=== PATIENT | female | born 1985 | race Two or more races ===

== ENCOUNTER 2017-07-13 11:47 | Emergency (ER) | payer OTHER ==
[2017-07-13 12:05] VITALS: BP 113/86; PULSE 78; TEMP 98.4; BMI 32.9
[2017-07-13] MEDS ORDERED: SODIUM CHLORIDE 1,000 ML IV ONE (12:32)
--- NOTE | 2017-07-13 12:43 | PDOC ---
History of Present Illness - General History Source: Patient Exam Limitations: No Limitations - History of Present Illness Initial Comments: 07/13/17 13:02 The patient is a 32 year old, A0 female with a significant PMH of left ovarian cyst removal and right ovarian cyst who presents to the emergency department with vaginal bleeding with associated suprapubic discomfort and lightheadedness approximately 1 hour ago. The patient describes the vaginal bleeding as "clots and gushing flow" about 1 hour ago but states the vaginal bleeding has slowed down since. The patient states she had a HCG recently which showed she was six months . The patient describes the suprapubic discomfort as cramping and states it is a /10. The patient states she had a vaginal delivery three months ago and her last menstrual period was on . The patient has not taking any medications for the pain at home and refuse to take pain meds at the ER. The patient denies chest pain, shortness of breath, headache and dizziness. Denies fever, chills, nausea, vomit, diarrhea and constipation. Denies dysuria, frequency, and urgency. Allergies: NKA Past surgical history: Left ovarian cyst removal. Social history: No reported alcohol, drug, or cigarette use. 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 <Amrita Starks - Last Filed: 07/13/17 13:03> <Sukumar Rowland - Last Filed: 07/13/17 15:08> - General Chief Complaint: Vaginal Bleeding Stated Complaint: VAGINAL BLEEDING (6 WKS ) Time Seen by Provider: 07/13/17 12:31 Past History <Amrita Starks - Last Filed: 07/13/17 13:03> - Past Medical History COPD: No - Reproductive History Is Patient Now?: Yes - Suicide/Smoking/Psychosocial Hx Smoking History: Never smoked Have you smoked in the past 12 months: No Information on smoking cessation initiated: No Hx Alcohol Use: No Drug/Substance Use Hx: No Substance Use Type: None <Sukumar Rowland - Last Filed: 07/13/17 15:08> - Past Medical History Allergies/Adverse Reactions: Allergies Allergy/AdvReac Type Severity Reaction Status Date / Time No Known Allergies Allergy Verified 01/17/16 11:46 Home Medications: Ambulatory Orders NK [No Known Home Medication] 01/17/16 Review of Systems - Review of Systems Constitutional: No: Chills, Fever Respiratory: No: Cough, Shortness of Breath Cardiac (ROS): No: Chest Pain ABD/GI: No: Diarrhea, Vomiting : Yes: See HPI All Other Systems: Reviewed and Negative <Sukumar Rowland - Last Filed: 07/13/17 15:08> *Physical Exam - Vital Signs Last Vital Signs Temp Pulse Resp BP Pulse Ox 98.4 F 78 18 113/86 100 07/13/17 12:02 07/13/17 12:02 07/13/17 12:02 07/13/17 12:02 07/13/17 12:02 - Physical Exam Comments: 07/13/17 13:01 GENERAL: The patient is awake, alert, and fully oriented, in no acute distress. HEAD: Normal with no signs of trauma. EYES: Pupils equal, round and reactive to light, extraocular movements intact, sclera anicteric, conjunctiva clear with no pallor. ENT: Ears normal, nares patent, oropharynx clear without exudates. Moist mucous membranes. NECK: Normal range of motion, supple without lymphadenopathy, JVD, or masses. LUNGS: Breath sounds equal, clear to auscultation bilaterally. No wheeze/ crackles. HEART: Regular rate and rhythm, normal S1 and S2 without murmur or rub. ABDOMEN: (+) Suprapubic discomfort. Soft/nontender/nondistended. BS wnl. No guarding or rebound. No palpable masses. No hepatosplenomegaly. EXTREMITIES: Normal range of motion, no edema. No clubbing or cyanosis. No cords, erythema, or tenderness. NEUROLOGICAL: Cranial nerves II through XII grossly intact. Normal speech, normal gait. PSYCH: Normal mood, normal affect. SKIN: Warm, Dry, normal turgor, no rashes or lesions noted. <Amrita Starks - Last Filed: 07/13/17 13:03> - Vital Signs Last Vital Signs Temp Pulse Resp BP Pulse Ox 98.4 F 78 18 113/86 100 07/13/17 12:02 07/13/17 12:02 07/13/17 12:02 07/13/17 12:02 07/13/17 12:02 <Sukumar Rowland - Last Filed: 07/13/17 15:08> ED Treatment Course - LABORATORY CBC & Chemistry Diagram: 07/13/17 12:40 - RADIOLOGY Radiology Studies Ordered: Category Date Time Status TRANSVAGINAL US PREG [US] Stat Ultrasound 07/13/17 12:32 Ordered <Sukumar Rowland - Last Filed: 07/13/17 15:08> Medical Decision Making - Medical Decision Making 07/13/17 13:28 A portion of this note was documented by scribe services under my direction. I have reviewed the details of the note, within reason, and agree with the documentation with the following case summary and management plan written by me. Healthy 32-year-old female LMP about 6 weeks status post uncomplicated about 3 months ago, self diagnosed about 2 weeks ago upon missing her menses presents now with vaginal bleeding with clots over the last hour with pelvic cramping. Slight lightheadedness but no loss of consciousness, no fevers or chills. Vital signs normal. Slight suprapubic discomfort to palpation without guarding or rebound 32-year-old female with vaginal bleeding in the setting of early , rule out ectopic, rule out miscarriage. Transvaginal ultrasound, hCG, type and screen IV fluids, reassess 07/13/17 15:04 RH+, HCG at expected levels, US with single live IUP and normal heartbeat. normal os per discussion with rads. Bleeding has significantly decreased/improved. Agrees with d/c plan at this time, prompt f/u with her OB, understands return criteria. <Sukumar Rowland - Last Filed: 07/13/17 15:08> *DC/Admit/Observation/Transfer - Attestations Scribe Attestion: 07/13/17 13:01 Documentation prepared by Amrita Starks, acting as medical science liaison for Sukumar Rowland MD. <Amrita Starks - Last Filed: 07/13/17 13:03> <Sukumar Rowland - Last Filed: 07/13/17 15:08> Diagnosis at time of Disposition: Vaginal bleeding affecting early - Discharge Dispostion Disposition: HOME Condition at time of disposition: Improved - Referrals Referrals: Arturo Pike MD, MD [Primary Care Provider] - - Patient Instructions Printed Discharge Instructions: DI for Threatened Additional Instructions: Activity as tolerated. Stay hydrated. Tylenol 1000 mg every 8 hours as needed for pain. Blood tests and an ultrasound showed a normal in the uterus. While the bleeding is concerning, the workup is reassuring. Monitor the amount of bleeding/cramps and follow up closely with your IT SENIOR ANALYST. Continue any medications as previously prescribed by your physician. You should follow up with your IT SENIOR ANALYST as soon as possible regarding today's emergency department visit. Return to the emergency department for any new or concerning symptoms, particularly worsening bleeding or passage of large clots/tissue, severe pelvic cramping, fevers or chills.
[2017-07-13 13:10] LABS: BASO % 0.6 % (0-2.0); EOS % 0.9 % (0-4.5); HEMATOCRIT 39.3 % (32.4-45.2); HEMOGLOBIN 12.6 GM/dL (10.7-15.3); LYMPH % 27.8 % (8-40); MCH 28.4 pg (25.7-33.7); MCHC 32.2 g/dl (32.0-36.0); MEAN CELL VOLUME 88.2 fl (80-96); MEAN PLT VOLUME 8.2 fl (7.5-11.1); MONO % 8.2 % (3.8-10.2); NEUT % 62.5 % (42.8-82.8); PLATELET COUNT 361 K/MM3 (134-434); RBC 4.45 M/mm3 (3.60-5.2); RDW 13.2 % (11.6-15.6); WHITE BLOOD COUNT 5.4 K/mm3 (4.0-10.0)
[2017-07-13 13:13] LABS: URINE APPEARANCE SLCLOUDY; URINE BILIRUBIN NEGATIVE (NEGATIVE); URINE BLOOD 3+ (NEGATIVE); URINE COLOR YELLOW; URINE GLUCOSE (UA) NEGATIVE (NEGATIVE); URINE KETONE NEGATIVE (NEGATIVE); URINE LEUK ESTERASE NEGATIVE (NEGATIVE); URINE NITRITE NEGATIVE (NEGATIVE); URINE UROBILINOGEN NEGATIVE mg/dL (0.2-1.0)
[2017-07-13 13:14] LABS: URINE PROTEIN 1+ (NEGATIVE)
[2017-07-13 13:39] LABS: INR 1.04 (0.82-1.09); PROTHROMBIN TIME (PATIENT) 11.8 SEC (9.98-11.88)
[2017-07-13 14:15] LABS: EPI CELLS RARE /HPF (FEW); URINE BACTERIA RARE /hpf (NONE SEEN); URINE MUCUS RARE
== END 2017-07-13 15:14 | disposition home or self-care (01) ==
LOC: JER 11:47
PROC: 3E0337Z Introduction of Electrolytic and Water Balance Substance into Peripheral Vein, Percutaneous Approach (ICD-10-PCS; principal; 2017-07-13)
DX: O26.891 Other specified pregnancy related conditions, first trimester (principal); O20.8 Other hemorrhage in early pregnancy; Z3A.01 Less than 8 weeks gestation of pregnancy
CPT/HCPCS: 36415; 76817-TC; 81003; 81015; 84702; 85025; 85610; 86850; 86900; 86901; 99284-25

== ENCOUNTER 2017-10-11 09:29 | Emergency (ER) | payer OTHER ==
[2017-10-11 09:36] VITALS: BP 119/58; PULSE 93; TEMP 98.1; BMI 36.2
--- NOTE | 2017-10-11 10:58 | PDOC ---
History of Present Illness - General Chief Complaint: Abscess Boil Stated Complaint: ABSCESS BOIL Time Seen by Provider: 10/11/17 09:53 History Source: Patient Exam Limitations: No Limitations - History of Present Illness Initial Comments: 10/11/17 10:52 Patient is a 32-year-old female, currently 25 weeks presents for evaluation of abscess to left inner thigh. Patient with history of same from infected hair follicles. She usually is able to drain them herself however she is not able to visualize area because she is currently . Patient denies any fever, pain to area. Past Medical History: [Denies]. Allergies: No known allergies Medications: Family History: Non-contributory Social History: Denies smoking, alcohol use, or IVDU Review of Systems GENERAL/CONSTITUTIONAL: [No fever or chills. No weakness. No weight change.] HEAD, EYES, EARS, NOSE AND THROAT: [No change in vision. No ear pain or discharge. No sore throat. ] CARDIOVASCULAR: [No chest pain or shortness of breath.] RESPIRATORY: [No cough, wheezing, or hemoptysis.] GASTROINTESTINAL: [No nausea, vomiting, diarrhea or constipation. No rectal bleeding.] GENITOURINARY: [No dysuria, frequency, or change in urination.] MUSCULOSKELETAL: [No joint or muscle swelling or pain. No neck or back pain.] SKIN : [No rash or easy bruising. Painful, raised, fluctuant erythematous lesion to left inner thigh with no surrounding induration] HEMATOLOGIC/LYMPHATIC: [No anemia, easy bleeding, or history of blood clots. No lymphadenopathy] ALLERGIC/IMMUNOLOGIC: [No hives or skin allergy. No latex allergy.] Physical Exam: GENERAL: [The patient is awake, alert, and fully oriented, in no acute distress. ] EYES: [Pupils equal, round and reactive to light, extraocular movements intact, sclera anicteric, conjunctiva clear.] ENT: [Ears normal, nares patent, oropharynx clear without exudates. Moist mucous membranes. No uvula deviation] NECK: [Normal range of motion, supple without lymphadenopathy, JVD, or masses.] LUNGS: [Breath sounds equal, clear to auscultation bilaterally. No wheezes, and no crackles.] HEART: [Regular rate and rhythm, normal S1 and S2 without murmur, rub or gallop. ] ABDOMEN: [Soft, nontender, normoactive bowel sounds. No guarding, no rebound. No masses. No bruising or abrasions] MUSCULOSKELETAL: [Normal range of motion, no edema. No clubbing or cyanosis. No cords, erythema, or tenderness. No CVA Tenderness with fist.] NEUROLOGICAL: [Cranial nerves II through XII grossly intact. Normal speech, normal gait.] SKIN: [Painful, raised, fluctuant erythematous lesion to left inner thigh with no surrounding induration Past History - Past Medical History Allergies/Adverse Reactions: Allergies Allergy/AdvReac Type Severity Reaction Status Date / Time No Known Allergies Allergy Verified 10/11/17 09:32 Home Medications: Ambulatory Orders NK [No Known Home Medication] 01/17/16 COPD: No - Suicide/Smoking/Psychosocial Hx Smoking History: Never smoked Have you smoked in the past 12 months: No Hx Alcohol Use: No Drug/Substance Use Hx: No Substance Use Type: None *Physical Exam - Vital Signs Last Vital Signs Temp Pulse Resp BP Pulse Ox 98.1 F 93 H 16 119/58 98 10/11/17 09:32 10/11/17 09:32 10/11/17 09:32 10/11/17 09:32 10/11/17 09:32 Procedures - Incision and Drainage I&D Site: Left: Other (inner thigh) Betadine cleansed: Yes Anesthesia: 1% Lidocaine Volume(ml): 1 Blade Size: 11 Attempts: 1 Iodinated Packin/2 in (4 inches) Plain Packing: No (iodoform. ) Complications: none Dressing: Yes (Sterile gauze) Medical Decision Making - Medical Decision Making 10/11/17 10:57 A/P: Patient here for evaluation of abscess to left inner thigh she is currently 25 weeks , does not want to take antibiotics she reports that she usually performs an I&D on herself however she is unable to visualize the wound. After prepping sterilely with Betadine, Using local anesthetic I injected 1 mL of lidocaine into the area. With an 11 blade made a small 1/2 cm incision to mid lesion with pustulant drainage and small capsule was able to be removed. Area packed using 4 inches of half-inch iodoform. A dressing applied, care instructions given to patient. I have sent a wound culture which patient will call for results. We'll consider antibiotic Treatment if area does not resolve *DC/Admit/Observation/Transfer Diagnosis at time of Disposition: Abscess - Discharge Dispostion Disposition: HOME Condition at time of disposition: Stable Admit: No - Referrals Referrals: Arturo Pike MD, MD [Primary Care Provider] - - Patient Instructions Printed Discharge Instructions: DI for Incision and Drainage of a Skin Abscess Additional Instructions: Keep dressing on overnight. Warm compresses 15-20 minutes at a time 3-4 times a day. Return to ED tomorrow morning for a wound evaluation and pack removal if unable to remove the packing or any increased inflammation Return to ED immediately if any signs of infection such as fever, increasing pain, swelling, streaking redness, or if symptoms worsen or any concerns. Please call [phone] in one week for results of wound culture - Post Discharge Activity
== END 2017-10-11 11:02 | disposition home or self-care (01) ==
LOC: JERFT 09:29
PROC: 0J9M0ZZ Drainage of Left Upper Leg Subcutaneous Tissue and Fascia, Open Approach (ICD-10-PCS; principal; 2017-10-11)
DX: O99.89 Other specified diseases and conditions complicating pregnancy, childbirth and the puerperium (principal); L02.416 Cutaneous abscess of left lower limb; Z3A.25 25 weeks gestation of pregnancy
CPT/HCPCS: 10060; 87070; 87205; 99282-25

== ENCOUNTER 2020-04-03 13:59 | Emergency (ER) | payer OTHER ==
[2020-04-03 14:18] VITALS: BP 122/53; PULSE 68; TEMP 97.9; BMI 33.3
--- NOTE | 2020-04-03 14:29 | PDOC ---
History of Present Illness - General History Source: Patient - History of Present Illness Timing/Duration: other (2 days ago) <Daniel Cosby - Last Filed: 04/03/20 15:49> <Miriam Zeng - Last Filed: 04/04/20 07:27> - General Chief Complaint: Weakness Stated Complaint: BELLS PALSY Time Seen by Provider: 04/03/20 14:18 Past History - Medical History COPD: No Liver Disease: No - Reproductive History Is Patient Now?: No - Immunization History Immunization Up to Date: No - Psycho-Social/Smoking History Smoking History: Never smoked Have you smoked in the past 12 months: No Information on smoking cessation initiated: No - Substance Abuse Hx (Audit-C & DAST Scrn) How often the patient has a drink containing alcohol: Never Score: In Men: 4 or > Positive; In Women: 3 or > Positive: 0 Screen Result (Pos requires Nsg. Audit-10AR): Negative In the last yr the pt used illegal drug/Rx for NonMed reason: No Score: Yes response is considered Positive: 0 Screen Result (Positive result requires Nsg. DAST-10): Negative <Daniel Cosby - Last Filed: 04/03/20 15:49> <Miriam Zeng - Last Filed: 04/04/20 07:27> - Medical History Allergies/Adverse Reactions: Allergies Allergy/AdvReac Type Severity Reaction Status Date / Time No Known Allergies Allergy Verified 10/11/17 09:32 Home Medications: Ambulatory Orders Mineral Oil/Petrolatum,White [Systane Nighttime Eye Oint] 3.5 gm OD HS #1 oint...g. 04/03/20 Propylene Glycol/Peg 400 [Systane 0.3-0.4% Eye Drops] 10 ml OP ASDIR #1 drops 04/03/20 Valacyclovir HCl [Valtrex -] 1,000 mg PO TID #20 tablet 04/03/20 predniSONE [Deltasone -] 60 mg PO DAILY #18 tablet 04/03/20 Review of Systems - Review of Systems Neurological: No: Headache, Numbness, Tingling, Weakness, Dizziness <Daniel Cosby - Last Filed: 04/03/20 15:49> *Physical Exam - Vital Signs Last Vital Signs Temp Pulse Resp BP Pulse Ox 97.9 F 68 18 122/53 L 99 04/03/20 14:02 04/03/20 14:02 04/03/20 14:02 04/03/20 14:02 04/03/20 14:02 - Physical Exam General Appearance: Yes: Appropriately Dressed. No: Apparent Distress HEENT: positive: Normal Voice Neck: positive: Supple Respiratory/Chest: negative: Respiratory Distress Integumentary: positive: Dry, Warm Neurologic: positive: marketing services vice president II-XII NML intact, Fully Oriented, Alert, Normal Mood/Affect, Other (R sided facial droop w/ inability to fully close R eye or raise R brow, c/w Leon's, nl finger to nose, no drift, no ataxia). negative: Numbness <Daniel Cosby - Last Filed: 04/03/20 15:49> - Vital Signs Last Vital Signs Temp Pulse Resp BP Pulse Ox 97.9 F 68 18 122/53 L 99 04/03/20 14:02 04/03/20 14:02 04/03/20 14:02 04/03/20 14:02 04/03/20 14:06 <Miriam Zeng - Last Filed: 04/04/20 07:27> ED Treatment Course - Medications Given in the ED: ED Medications Discontinued Medications Generic Name Dose Route Start Last Admin Trade Name Mariano PRN Reason Stop Dose Admin Prednisone 60 mg 04/03/20 15:20 04/03/20 15:50 Deltasone - PO 04/03/20 15:21 60 mg ONCE ONE Administration Valacyclovir HCl 1,000 mg 04/03/20 15:20 04/03/20 15:50 Valtrex - PO 04/03/20 15:21 1,000 mg ONCE ONE Administration <Miriam Zeng - Last Filed: 04/04/20 07:27> Medical Decision Making - Medical Decision Making 04/03/20 14:26 34 yo F, sp > 1 monthago, here w/ R facial discomfort, droop and inability to close R eye x 2 days. No KU, dizziness, n/v, focal weakness or slurred speech. Seem in UC today and sent to ER for further eval see exma Suspects Leon's Palsy ? [facility] 1V 1st dose steroid/valtrex given in ED -CTH pending -Anticipate dc w/ neuro meds and neuro f/u 04/03/20 15:49 CTH negative. Stable for dc w/ neuro f/u <Daniel Cosby - Last Filed: 04/03/20 15:49> - Medical Decision Making The patient was seen and evaluated in conjunction with midlevel provider under my direct supervision, ancillary studies were reviewed. I agree with the plan as outlined with_. HPI, workup/dispo as outlined. VS reviewed, wnl. clinically appearing as leon's palsy treat w/steroids anticipate discharge, pcp/neuro followup, return precautions 04/04/20 07:27 <Miriam Zeng - Last Filed: 04/04/20 07:27> Discharge - Discharge Information Problems reviewed: Yes <Elysia CosbyMarySaima - Last Filed: 04/03/20 15:49> <Miriam Zeng - Last Filed: 04/04/20 07:27> - Discharge Information Clinical Impression/Diagnosis: Leon's palsy Condition: Stable Disposition: HOME - Additional Discharge Information Prescriptions: predniSONE [Deltasone -] 60 mg PO DAILY #18 tablet Propylene Glycol/Peg 400 [Systane 0.3-0.4% Eye Drops] 10 ml OP ASDIR #1 drops Mineral Oil/Petrolatum,White [Systane Nighttime Eye Oint] 3.5 gm OD HS #1 oint...g. Valacyclovir HCl [Valtrex -] 1,000 mg PO TID #20 tablet - Follow up/Referral Referrals: Arturo Pike MD, MD [Primary Care Provider] - Joo Otero MD [Staff Physician] - - Patient Discharge Instructions Patient Printed Discharge Instructions: DI for [place] Palsy Additional Instructions: Leon's Palsy is usually a temporary nerve dysfunction of the face. Most cases resolve spontaneously over 3 to 6 months. There are some cases that do take longer to recover and needs further management Treatment usually included steroids and if symptom are severe enough, an antiviral. You were given first doses of meds in ER and should continue taking medications as prescribed Regarding your eye care, as you are unable to fully close right eye, you need to protect your eye by preventing dryness/irritation/damage: 1)Using artificial tear drops four times daily and up to hourly if needed. 2)While asleep, use protect eye while you sleep by using ointment and wearing goggles or using tape to tape eye shut to prevent debris from entering eye Please follow-up with Dr. Otero of neurology in 2 to 3 weeks for continued assessment You should NOT breastfeed while on above medications as discussed - Post Discharge Activity Work/Back to School Note: Back to Work
[2020-04-03] MEDS ORDERED: valACYclovir HCL 1000 MG TABLET PO ONE (15:20)
[2020-04-03] MEDS ORDERED: predniSONE 20 MG TABLET (UD) PO ONE (15:20)
[2020-04-03] MEDS ORDERED: valACYclovir HCL 500 MG TABLET (FP) ONE ×2 (15:33→15:44)
[2020-04-03] MEDS ORDERED: predniSONE 20 MG TABLET (UD) ONE (15:33)
--- OUTSIDE RECORDS SUMMARY | 2020-04-03 19:04 | XMS ---
:1985 Author Organization [facility] Care Team Providers Name Role Phone ED STAFF PHYSICIANJONO Unavailable Unavailable ED STAFF PHYSICIAN, STAFF Unavailable Unavailable Re-disclosure Warning The records that you are about to access may contain information from federally- assisted alcohol or drug abuse programs. If such information is present, then the following federally mandated warning applies: This information has been disclosed to you from records protected by federal confidentiality rules (42 CFR part 2). The federal rules prohibit you from making any further disclosure of this information unless further disclosure is expressly permitted by the written consent of the person to whom it pertains or as otherwise permitted by 42 CFR part 2. A general authorization for the release of medical or other information is NOT sufficient for this purpose. The Federal rules restrict any use of the information to criminally investigate or prosecute any alcohol or drug abuse patient.The records that you are about to access may contain highly sensitive health information, the redisclosure of which is protected by Article 27-F of the [facility] Public Health law. If you continue you may haveaccess to information: Regarding HIV / AIDS; Provided by facilities licensed or operated by the [facility] Office of Mental Health; or Provided by the [facility] Office for People With Developmental Disabilities. If such information is present, then the following [facility] mandated warning applies: This information has been disclosed to you from confidential records which are protected by state law. State law prohibits you from making any further disclosure of this information without the specific written consent of the person to whom it pertains, or as otherwise permitted by law. Any unauthorized further disclosure in violation of state law may result in a fine or care home sentence or both. A general authorization for the release of medical or other information is NOT sufficient authorization for further disclosure. Encounters Encounter Providers Location Date Indications Data Source(s ) Emergency Attender: JONO ED H 03/14/2020 [facility] [place] STAFF 02:04:00 AM EDT Medical C enter PHYSICIANAttender: - 03/14/2020 STAFF ED STAFF 09:43:00 AM EDT PHYSICIANAdmitter: JONO ED STAFF PHYSICIAN Patient discharged. Insurance Providers Payer name Policy type Policy ID Covered Covered constitution party's Policy P ariadna / Coverage constitution party ID relationship to Garcia Inf ormation type garcia MVP MEDICAID [id number] SP [id number] HMO MVP/HHP O [id number] O [facility] [id number] O [id number] Problems, Conditions, and Diagnoses Code Display Name Description Problem Type Effective Dates Data Source(s) Z53.20 Procedure and PROC/TRTMT NOT Diagnosis 03/14/2020 [facility] treatment not CRD OUT BEC PT 02:04:00 AM EDT [place] [facility] [place] carried out DECISION FOR UNSP because of REASONS patient's decision for unspecified reasons R10.9 Unspecified UNSPECIFIED Diagnosis 03/14/2020 [facility] abdominal pain ABDOMINAL PAIN 02:04:00 AM EDT [facility] Results ID Date Data Source Liver 03/14/2020 03:15:00 AM EDT [facility] Profile.[id number] Name Value Range Interpretation Description Data Sup porting Code Source(s) Document(s ) Alanine 7-30 <content [facility] aminotransferase styleCode="Bold"> Suman hs [Enzymatic Alanine Medical activity/volume] Aminotransferase Center in Serum or Plasma (ALT) </content>12 IU/L<content styleCode="Italic s"> (7-30 IU/L)</content> Aspartate 14-36 <content [facility] aminotransferase styleCode="Bold"> Suman hs [Enzymatic Aspartate Medical activity/volume] Aminotransferase Center in Serum or Plasma (AST) </content>21 IU/L<content styleCode="Italic s"> (14-36 IU/L)</content> Alkaline 38-126 <content [facility] phosphatase styleCode="Bold"> Megha [Enzymatic Alkaline Medical activity/volume] Phosphatase (ALP) Cente r in Serum or Plasma </content>96 IU/L<content styleCode="Italic s"> (38-126 IU/L)</content> Bilirubin.total 0.2-1.3 <content [facility] [Mass/volume] in styleCode="Bold"> Suman hs Serum or Plasma Bilirubin Total Medical </content>0.4 Center MG/DL<content styleCode="Italic s"> (0.2-1.3 MG/DL)</content> UNK 0.0-0.3 <content [facility] styleCode="Bold"> Megha Bilirubin, Direct Medical </content>< 0.2 Center MG/DL<content styleCode="Italic s"> (0.0-0.3 MG/DL)</content> Albumin 3.5-5.0 <content [facility] [Mass/volume] in styleCode="Bold"> Suman hs Serum or Plasma Albumin Medical </content>4.4 Center G/DL<content styleCode="Italic s"> (3.5-5.0 G/DL)</content> ID Date Data Source HematologyRou.[id number] 03/14/2020 03:15:00 AM EDT [facility] 0400 Name Value Range Interpretation Description Data Sup porting Code Source(s) Document(s ) Leukocytes 4.4-11.0 <content [facility] [#/volume] in styleCode="Bold Megha Blood by ">White Blood Medical Automated count Cell Count Center </content>5.36 KCUMM<content styleCode="Ital ics"> (4.4-11.0 KCUMM)</content > Hemoglobin 12.3-16. <content [facility] [Mass/volume] in 0 styleCode="Bold Megha Blood ">Hemoglobin Medical </content>12.8 Center G/DL<content styleCode="Ital ics"> (12.3-16.0 G/DL)</content> Erythrocytes 4.0-5.1 <content [facility] [#/volume] in styleCode="Bold Megha Blood by ">Red Blood Medical Automated count Cell Count Center </content>4.35 MCUMM<content styleCode="Ital ics"> (4.0-5.1 MCUMM)</content > Hematocrit 36.0-46. <content [facility] [Volume 0 styleCode="Bold Megha Fraction] of ">Hematocrit Medical Blood by </content>38.8 Center Automated count %<content styleCode="Ital ics"> (36.0-46.0 %)</content> Erythrocyte mean 26.0-34. <content [facility] corpuscular 0 styleCode="Bold Megha hemoglobin ">Mean Medical [Entitic mass] Corposcular Center by Automated Hemoglobin count </content>29.4 PG<content styleCode="Ital ics"> (26.0-34.0 PG)</content> Erythrocyte mean 80.0-100 <content [facility] corpuscular .0 styleCode="Bold Megha volume [Entitic ">Mean Medical volume] by Corpuscular Center Automated count Volume </content>89.2 FL<content styleCode="Ital ics"> (80.0-100.0 FL)</content> Erythrocyte 11.5-14. <content [facility] distribution 5 styleCode="Bold Megha width [Ratio] by ">Red Cell Medical Automated count Distribution Center Width </content>12.4 %<content styleCode="Ital ics"> (11.5-14.5 %)</content> Erythrocyte mean 32.0-37. <content [facility] corpuscular 0 styleCode="Bold Megha hemoglobin ">Mean Corpus. Medical concentration Hgb Center [Mass/volume] by Concentration Automated count (MCHC) </content>33.0 G/DL<content styleCode="Ital ics"> (32.0-37.0 G/DL)</content> Platelets 130-400 <content [facility] [#/volume] in styleCode="Bold Megha Blood by ">Platelet Medical Automated count Count Center </content>389 KCUMM<content styleCode="Ital ics"> (130-400 KCUMM)</content > Platelet mean 8.0-11.0 <content [facility] volume [Entitic styleCode="Bold Megha volume] in Blood ">Mean Platelet Medical by Automated Volume Center count </content>10.3 FL<content styleCode="Ital ics"> (8.0-11.0 FL)</content> UNK 0 <content Saint styleCode="Bold Megha ">Nucleated Red Medical Blood Cell Center </content>0.0 /100<content styleCode="Ital ics"> (0 /100)</content> UNK 0.0 <content Saint styleCode="Bold Megha ">Nucleated Red Medical Blood Cell Center Count </content>0.00 KCUMM<content styleCode="Ital ics"> (0.0 KCUMM)</content > ID Date Data Source GFR(Creatinine).[id number] 03/14/2020 03:15:00 AM EDT [facility] 0-0400 Name Value Range Interpretation Code Description Data Stefania rce(s) Supporting Document(s ) UNK > 60 <content [facility] styleCode="Bold"> Medical Cent er EGFR </content>76 GFR<content styleCode="Italic s"> (> 60 GFR)</content> ID Date Data Source CHMROUTINECCDA.[id number] 03/14/2020 03:15:00 AM EDT [facility] -0400 Name Value Range Interpretation Description Data Sup porting Code Source(s) Document(s ) Lipase 23-300 <content [facility] [Enzymatic styleCode="Bold Medical activity/vo ">Lipase Center lume] in </content>139 Serum or IU/L<content Plasma styleCode="Ital ics"> (23-300 IU/L)</content> ID Date Data Source [facility].[id number] 03/14/2020 03:15:00 AM EDT [facility] Center Name Value Range Interpretation Description Data Sup porting Code Source(s) Document(s ) Sodium 137-145 <content [facility] [Moles/volume] in styleCode="Bold"> [facility] Serum or Plasma Sodium Medical </content>137 Center MEQ/L<content styleCode="Italic s"> (137-145 MEQ/L)</content> Chloride 98-107 <content [facility] [Moles/volume] in styleCode="Bold"> [facility] Serum or Plasma Chloride Medical </content>106 Center MEQ/L<content styleCode="Italic s"> (98-107 MEQ/L)</content> Potassium 3.5-5.3 <content [facility] [Moles/volume] in styleCode="Bold"> [facility] Serum or Plasma Potassium Medical </content>4.1 Center MEQ/L<content styleCode="Italic s"> (3.5-5.3 MEQ/L)</content> Carbon dioxide, 22-30 <content [facility] total styleCode="Bold"> Megha [Moles/volume] in Carbon Dioxide Medical Serum or Plasma </content>22 Center MEQ/L<content styleCode="Italic s"> (22-30 MEQ/L)</content> UNK 7-17 <content [facility] styleCode="Bold"> Megha BUN </content>14 Medical MG/DL<content Center styleCode="Italic s"> (7-17 MG/DL)</content> Creatinine 0.5-1.3 <content [facility] [Mass/volume] in styleCode="Bold"> Suman hs Serum or Plasma Creatinine Medical </content>0.9 Center MG/DL<content styleCode="Italic s"> (0.5-1.3 MG/DL)</content> Calcium 8.4-10. <content [facility] [Mass/volume] in 2 styleCode="Bold"> Suman hs Serum or Plasma Calcium Medical </content>9.3 Center MG/DL<content styleCode="Italic s"> (8.4-10.2 MG/DL)</content> UNK > 60 <content [facility] styleCode="Bold"> Megha EGFR </content>76 Medical GFR<content Center styleCode="Italic s"> (> 60 GFR)</content> Glucose 74-106 <content [facility] [Mass/volume] in styleCode="Bold"> Suman hs Serum or Plasma Glucose Medical </content>97 Center MG/DL<content styleCode="Italic s"> (74-106 MG/DL)</content> Alanine 7-30 <content [facility] aminotransferase styleCode="Bold"> Suman hs [Enzymatic Alanine Medical activity/volume] Aminotransferase Center in Serum or Plasma (ALT) </content>12 IU/L<content styleCode="Italic s"> (7-30 IU/L)</content> Aspartate 14-36 <content [facility] aminotransferase styleCode="Bold"> Suman hs [Enzymatic Aspartate Medical activity/volume] Aminotransferase Center in Serum or Plasma (AST) </content>21 IU/L<content styleCode="Italic s"> (14-36 IU/L)</content> Alkaline 38-126 <content [facility] phosphatase styleCode="Bold"> Megha [Enzymatic Alkaline Medical activity/volume] Phosphatase (ALP) Cente r in Serum or Plasma </content>96 IU/L<content styleCode="Italic s"> (38-126 IU/L)</content> Albumin 3.5-5.0 <content [facility] [Mass/volume] in styleCode="Bold"> Suman hs Serum or Plasma Albumin Medical </content>4.4 Center G/DL<content styleCode="Italic s"> (3.5-5.0 G/DL)</content> Bilirubin.total 0.2-1.3 <content [facility] [Mass/volume] in styleCode="Bold"> Suman hs Serum or Plasma Bilirubin Total Medical </content>0.4 Center MG/DL<content styleCode="Italic s"> (0.2-1.3 MG/DL)</content> ID Date Data Source Urinalysis.[id number] 03/14/2020 02:48:00 AM EDT [facility] 0 Name Value Range Interpretation Description Data Sup porting Code Source(s) Document(s ) UNK CLEAR <content [facility] styleCode="Tish Roldans d">Urine Medical Clarity Center </content>LEAH R <content styleCode="Clotilde lics"> (CLEAR )</content> Color of Urine YELLOW <content [facility] styleCode="Tish Megha d">Color, Medical Urine Center </content>YELL OW <content styleCode="Clotilde lics"> (YELLOW )</content> Glucose NEGATIVE <content [facility] [Mass/volume] styleCode="Tish [place] in Urine by d">Urine Medical Test strip Glucose Center </content>NEGA TIVE MG/DL<content styleCode="Clotilde lics"> (NEGATIVE MG/DL)</conten t> UNK NEGATIVE <content [facility] styleCode="Tish Roldans d">Urine Medical Bilirubin Center </content>NEGA TIVE <content styleCode="Clotilde lics"> (NEGATIVE )</content> Specific 1.015-1.02 Above high <content [facility] gravity of 5 normal styleCode="Tish [place] Urine by Test d">Urine Medical strip Specific Center [place] </content>>= 1.030 H<content styleCode="Clotilde lics"> (1.015-1.025 )</content> Ketones NEGATIVE <content [facility] [Mass/volume] styleCode="Tish [place] in Urine by d">Urine Medical Test strip Ketone Center </content>15 MG/DL<content styleCode="Clotilde lics"> (NEGATIVE MG/DL)</conten t> Hemoglobin NEGATIVE <content [facility] [Presence] in styleCode="Tish [place] Urine by Test d">Urine Blood Medical strip </content>NEGA Center TIVE <content styleCode="Clotilde lics"> (NEGATIVE )</content> pH of Urine by 4.5-8.0 <content Saint Test strip styleCode="Tish Roldans d">Urine pH Medical </content>6.0 Center <content styleCode="Clotilde lics"> (4.5-8.0 )</content> Protein NEGATIVE <content [facility] [Mass/volume] styleCode="Tish Megha in Urine by d">Urine Medical Test strip Protein Center </content>NEGA TIVE MG/DL<content styleCode="Clotilde lics"> (NEGATIVE MG/DL)</conten t> Urobilinogen 0.2-1.0 <content [facility] [Units/volume] styleCode="Tish Megha in Urine by d">Urine Medical Test strip Urobilinogen Center </content>0.2 MG/DL<content styleCode="Clotilde lics"> (0.2-1.0 MG/DL)</conten t> Nitrite NEGATIVE <content [facility] [Presence] in styleCode="Tish Megha Urine by Test d">Urine Medical strip Nitrite Center </content>NEGA TIVE <content styleCode="Clotilde lics"> (NEGATIVE )</content> Leukocyte NEGATIVE <content [facility] esterase styleCode="Tish Megha [Presence] in d">Urine Medical Urine by Test Leukocyte Center strip </content>NEGA TIVE <content styleCode="Clotilde lics"> (NEGATIVE )</content> ID Date Data Source [id number] 01/26/2020 03:55:00 PM EDT [facility] Name Value Range Interpretation Code Description Data Stefania rce(s) Supporting Document(s ) [facility] Resp Ql CAROLYN+probe This lab was ordered by [facility] and reported by [facility]. ID Date Data Source [id number] 12/18/2019 11:27:00 AM EDT [facility] Name Value Range Interpretation Description Data Sup porting Code Source(s) Document(s ) SARS [facility] CORONAVIRUS 2 RNA This lab was ordered by [facility] and reported by [facility]. Procedure Social History Code Duration Value Status Description Data Source(s ) Smoking 03/14/2020 Denies Ever completed Denies Ever Smoked [facility] 08:19:00 AM EDT Smoked Medical C enter Smoking 03/14/2020 Denies Ever completed Denies Ever Smoked [facility] 05:13:00 AM EDT Smoked Medical C enter Smoking 03/14/2020 Denies Ever completed Denies Ever Smoked [facility] 02:05:00 AM EDT Smoked Medical C enter Vital Signs ID Date Data Source UNK Name Value Range Interpretation Code Description Data Source(s) Body temperature 36.476568 36.148625 [facility] Respiratory rate 17 /min 17 /min [facility] Oxygen saturation 100 % 100 % [facility] madeline in Arterial blood Medical Center by Pulse oximetry Heart rate 85 /min 85 /min [facility] Diastolic blood 68 mm[Hg] 68 mm[Hg] [facility] pressure [facility] Systolic blood 113 mm[Hg] 113 mm[Hg] [facility] pressure [facility]
== END 2020-04-03 17:06 | disposition home or self-care (01) ==
LOC: JER 13:59
DX: G51.0 Bell's palsy (principal)
CPT/HCPCS: 70450-TC; 84703; 99284-25

== ENCOUNTER 2020-04-12 09:53 | Emergency (ER) | payer OTHER ==
[2020-04-12 10:01] VITALS: TEMP 99.2; BMI 32.1
--- NOTE | 2020-04-12 10:37 | PDOC ---
History of Present Illness - General Chief Complaint: Nausea/Vomiting Stated Complaint: VOMITING Time Seen by Provider: 04/12/20 10:37 - History of Present Illness Initial Comments: 34 YOF h/o migraines and bells palsy presents with headache, nausea, and vomiting, since Wednesday. Patient reports she was seen here last week for u nilateral facial drooping and numbness on the right side, received CT which was negative, was dxd with Leon's Palsy, given Rx for prednisone and acyclovir and dcd. She finished course of med on wednesday, on wednesday began with headaches with light sensitivity, on with vomiting and nausea, last meal was 6pm last night, unable to tolerate PO since, vomit is yellow, last BM this AM, still passing flatus, h/o abdominal surgery for removal of dermoid cyst in left ovary. Denies fever, chills, CP, SOB, diarrhea, recent travel or sick contacts. Constitutional: No Weight Change, No Fever, No Chills, No Night Sweats, No Fatigue, No Malaise ENT/Mouth: No Hearing Changes, No Ear Pain, No Nasal Congestion, No Sinus Pain, No Hoarseness, No sore throat, No Rhinorrhea, No Swallowing Difficulty Eyes: No Eye Pain, No Swelling, No Redness, No Foreign Body, No Discharge, No Vision Changes Cardiovascular: No Chest Pain, No SOB, No PND, No Dyspnea on Exertion, No Orthopnea, No Claudication, No Edema, No Palpitations Respiratory: No Cough, No Sputum, No Wheezing, No Smoke Exposure, No Dyspnea Gastrointestinal: + Nausea, + Vomiting, No Diarrhea, No Constipation, No Pain, No Heartburn, No Anorexia, No Dysphagia, No Hematochezia, No Melena, No Flatulence, No Jaundice Genitourinary: No Dysmenorrhea, No DUB, No Dyspareunia, No Dysuria, No Urinary Frequency, No Hematuria, No Urinary Incontinence, No Urgency, No Flank Pain, No Urinary Flow Changes, No Hesitancy Musculoskeletal: No Arthralgias, No Myalgias, No Joint Swelling, No Joint Stiffness, No Back Pain, No Neck Pain, No Injury History Skin: No Skin Lesions, No Pruritis, No Hair Changes, No Breast/Skin Changes, No Nipple Discharge Neuro: No Weakness, No Numbness, No Paresthesias, No Loss of Consciousness, No Syncope, No Dizziness, + Headache, No Coordination Changes, No Recent Falls Psych: No Anxiety/Panic, No Depression, No Insomnia, No Personality Changes, No Delusions, No Rumination, No SI/HI/AH/VH, No Social Issues, No Memory Changes, No Violence/Abuse Hx., No Eating Concerns Heme/Lymph: No Bruising, No Bleeding, No Transfusions History, No Lymphadenopathy Endocrine: No Polyuria, No Polydipsia, No Temperature Intolerance Past History - Medical History Allergies/Adverse Reactions: Allergies Allergy/AdvReac Type Severity Reaction Status Date / Time latex Allergy Intermediate Verified 04/12/20 10:27 Home Medications: Ambulatory Orders Cyanocobalamin (Vitamin B-12) [Vitamin B-12] 1,000 mcg PO DAILY 04/12/20 Lactobacillus Acidophilus [Acidophilus Lactobacilli] 1 each PO DAILY 04/12/20 COPD: No Liver Disease: No - Reproductive History Is Patient Now?: No - Immunization History Immunization Up to Date: No - Psycho-Social/Smoking History Smoking History: Never smoked Have you smoked in the past 12 months: No - Substance Abuse Hx (Audit-C & DAST Scrn) How often the patient has a drink containing alcohol: Never Score: In Men: 4 or > Positive; In Women: 3 or > Positive: 0 Screen Result (Pos requires Nsg. Audit-10AR): Negative In the last yr the pt used illegal drug/Rx for NonMed reason: No Score: Yes response is considered Positive: 0 Screen Result (Positive result requires Nsg. DAST-10): Negative *Physical Exam - Vital Signs Last Vital Signs Temp Pulse Resp BP Pulse Ox 99.2 F 72 18 110/74 100 04/12/20 09:55 04/12/20 09:55 04/12/20 09:55 04/12/20 09:55 04/12/20 09:55 ED Treatment Course - LABORATORY CBC & Chemistry Diagram: 04/12/20 11:42 04/12/20 11:42 Medical Decision Making - Medical Decision Making 34 YOF h/o migraines and [place] Palsy presents with headache, nausea and vomiting since 2 days. - vitals wnl - exam unemarkable - cbc, cmp, lipase, fluids, reglan, benadryl, tylenol - will reassess reassess - patient feels better, ready to return home - patient passed po challenge - labs unremarkable - will dc patient to f/u Discharge - Discharge Information Problems reviewed: Yes Clinical Impression/Diagnosis: Nausea & vomiting, Headache Condition: Good - Admission No - Follow up/Referral Referrals: Arturo Pike MD, [Primary Care Provider] - - Patient Discharge Instructions Patient Printed Discharge Instructions: DI for Vomiting -- Adult, DI for Migraine, DI for Headache Additional Instructions: You were seen in the emergency department for headache, nausea, and vomiting since wednesday, You received labs, fluids, and medication. Your labs were unremarkable. After receiving fluids and medication you reported feeling better and endorsed a wish to return home. Please follow up with your primary care doctor regarding your visit to the ER. Return to the emergency department if: You have a headache that seems different or much worse than your usual migraine headache. You have a severe headache with a fever or a stiff neck. You have new problems with speech, vision, balance, or movement. You feel like you are going to faint, you become confused, or you have a seizure. Contact your healthcare provider or neurologist if: Your migraines interfere with your daily activities. Your medicines or treatments stop working. You have questions or concerns about your condition or care. - Post Discharge Activity
[2020-04-12] MEDS ORDERED: LACTATED RINGERS SOLUTION 1000 ML INFUS.BAG IV ONE (11:20)
[2020-04-12] MEDS ORDERED: METOCLOPRAMIDE HCL INJECTION 10 MG/2 ML VIAL IVPUSH ONE (11:20)
[2020-04-12] MEDS ORDERED: ACETAMINOPHEN 1000 MG/100 ML VIAL (NON FORMULARY) IVPB ONE (11:20)
[2020-04-12] MEDS ORDERED: METOCLOPRAMIDE HCL INJECTION 10 MG/2 ML VIAL ONE (11:33)
[2020-04-12] MEDS ORDERED: ACETAMINOPHEN INJECTION 100 ML IVPB ONE (11:33)
[2020-04-12 11:53] LABS: BASO % 0.6 % (0-2.0); HEMATOCRIT 42.3 % (32.4-45.2); HEMOGLOBIN 13.9 GM/dL (10.7-15.3); LYMPH % 29.1 % (8-40); MCH 29.3 pg (25.7-33.7); MCHC 32.9 g/dl (32.0-36.0); MEAN CELL VOLUME 89.1 fl (80-96); MEAN PLT VOLUME 7.6 fl (7.5-11.1); MONO % 7.4 % (3.8-10.2); NEUT % 61.9 % (42.8-82.8); PLATELET COUNT 384 K/MM3 (134-434); RBC 4.75 M/mm3 (3.60-5.2); RDW 13.1 % (11.6-15.6); WHITE BLOOD COUNT 6.2 K/mm3 (4.0-10.0)
--- NOTE | 2020-04-12 12:05 | PDOC ---
Documentation entered by Jose Garrido SCRIBE, acting as scribe for Akshat Espinoza MD. Akshat Espinoza MD: This documentation has been prepared by the Hema freeman Angel, SCRIBE, under my direction and personally reviewed by me in its entirety. I confirm that the documentation accurately reflects all work, treatment, procedures, and medical decision making performed by me. Attending Attestation - Resident Resident Name: Luisito Antony - ED Attending Attestation I have performed the following: I have examined & evaluated the patient, The case was reviewed & discussed with the resident, I agree w/resident's findings & plan, Exceptions are as noted - HPI HPI: 04/12/20 12:00 The patient is a 34 year old female 4 months who presents to the ED with N/V and headache since Wednesday. The patient was recently seen here in the ED 9 days ago and was diagnosed with bells palsy and started on Valtrex and steroids. The patient states 2 days she began experiencing a mild pressure like headache with a gradual onset, now worsening and has taken no medications for it. The patient notes feeling nauseous yesterday as well. The patient denies fever/chills, vision changes, cough, SOB, or any other sympto ms here in the ED. - Physicial Exam PE: 04/12/20 12:02 GENERAL: The patient is awake, alert, and fully oriented, Nontoxic - in no acute distress. HEAD: Normocephalic, atraumatic. EYES: extraocular movements intact, sclera anicteric, conjunctiva clear. ENT: Normal voice, Moist mucous membranes. NECK: Normal range of motion, supple LUNGS: Breath sounds equal, clear to auscultation bilaterally. No wheezes, no rhonchi, no rales. HEART: Regular rate and rhythm, normal S1 and S2 without murmur, rub or gallop. ABDOMEN: Soft, nontender, No guarding, no rebound. No CVA tenderness EXTREMITIES: Normal range of motion, no edema. NEUROLOGICAL: weakness of R facial nerve (R forehead and R face), Normal speech, moving all 4 extremity spontaneously symmetrically, with 5/5 strength, sensation intact bilaterally in the faces, upper extremities, legs. PSYCH: Normal mood, normal affect. SKIN: Warm, Dry, normal turgor, - Medical Decision Making 04/12/20 12:04 Suspect that her headache may be tension headache vs migraine, nausea is likely related No focal neurology complaints beside her bells palsy Will treat supportively, will reassess 04/12/20 15:04 Pt feelint improved headache and nausea resolved will dc the pt out pt fu return precautions were discussed Discharge - Discharge Information Problems reviewed: Yes Clinical Impression/Diagnosis: Nausea & vomiting Qualifiers: Vomiting type: unspecified Vomiting Intractability: non-intractable Qualified Code(s): R11.2 - Nausea with vomiting, unspecified Headache Qualifiers: Headache type: tension-type Headache chronicity pattern: episodic headache Intractability: not intractable Qualified Code(s): G44.219 - Episodic tension- type headache, not intractable Condition: Good - Admission No - Follow up/Referral Referrals: Arturo Pike MD, MD [Primary Care Provider] - - Patient Discharge Instructions Patient Printed Discharge Instructions: DI for Migraine, DI for Vomiting -- Adult, DI for Headache Additional Instructions: You were seen in the emergency department for headache, nausea, and vomiting since wednesday, You received labs, fluids, and medication. Your labs were unremarkable. After receiving fluids and medication you reported feeling better and endorsed a wish to return home. Please follow up with your primary care doctor regarding your visit to the ER. Return to the emergency department if: You have a headache that seems different or much worse than your usual migraine headache. You have a severe headache with a fever or a stiff neck. You have new problems with speech, vision, balance, or movement. You feel like you are going to faint, you become confused, or you have a seizure. Contact your healthcare provider or neurologist if: Your migraines interfere with your daily activities. Your medicines or treatments stop working. You have questions or concerns about your condition or care. - Post Discharge Activity
[2020-04-12 12:26] LABS: ALBUMIN 3.8 g/dl (3.4-5.0); ALK PHOS 88 U/L (45-117); ANION GAP 6 MMOL/L (8-16); BILIRUBIN,TOTAL 0.4 mg/dL (0.2-1); BLOOD UREA NITROGEN 8.7 mg/dL (7-18); CALCIUM 9.2 mg/dL (8.5-10.1); CHLORIDE 102 mmol/L (98-107); CO2 30 mmol/L (21-32); CREATININE 0.9 mg/dL (0.55-1.3); GLUCOSE,RANDOM 79 mg/dL (74-106); LIPASE 103 U/L (73-393); POTASSIUM 4.3 mmol/L (3.5-5.1); SGOT/AST 11 U/L (15-37); SGPT/ALT 15 U/L (13-61); SODIUM 137 mmol/L (136-145); TOT PROT 7.6 g/dl (6.4-8.2)
[2020-04-12 13:47] LABS: PH,URINE 7.5 (5.0-8.0); URINE APPEARANCE CLEAR; URINE BILIRUBIN NEGATIVE (NEGATIVE); URINE COLOR YELLOW; URINE GLUCOSE (UA) NEGATIVE (NEGATIVE); URINE KETONE TRACE (NEGATIVE); URINE LEUK ESTERASE NEGATIVE (NEGATIVE); URINE NITRITE NEGATIVE (NEGATIVE); URINE PROTEIN NEGATIVE (NEGATIVE); URINE UROBILINOGEN 0.2 mg/dL (0.2-1.0)
[2020-04-12 14:41] VITALS: BP 110/69; PULSE 60
== END 2020-04-12 15:05 | disposition home or self-care (01) ==
LOC: JER 09:53
PROC: 3E033NZ Introduction of Analgesics, Hypnotics, Sedatives into Peripheral Vein, Percutaneous Approach (ICD-10-PCS; principal; 2020-04-12)
PROC: 3E033GC Introduction of Other Therapeutic Substance into Peripheral Vein, Percutaneous Approach (ICD-10-PCS; 2020-04-12)
DX: R11.2 Nausea with vomiting, unspecified (principal); G44.219 Episodic tension-type headache, not intractable
CPT/HCPCS: 36415; 80053; 81003; 83690; 84702; 85025; 87086; 99285-25; J0131

== ENCOUNTER 2020-06-11 11:01 | Emergency (ER) | payer OTHER ==
[2020-06-11 11:06] VITALS: BMI 33.3
[2020-06-11] MEDS ORDERED: ACETAMINOPHEN 1000 MG/100 ML VIAL (NON FORMULARY) IVPB ONE (11:28)
[2020-06-11] MEDS ORDERED: SODIUM CHLORIDE 1,000 ML IV STA (11:28)
[2020-06-11] MEDS ORDERED: ONDANSETRON 4 MG/2 ML VIAL IVPUSH ONE (11:28)
[2020-06-11] MEDS ORDERED: ACETAMINOPHEN INJECTION 100 ML IVPB ONE (12:12)
[2020-06-11] MEDS ORDERED: ONDANSETRON 4 MG/2 ML VIAL ONE (12:12)
[2020-06-11 12:51] LABS: BASO % 1.2 % (0-2.0); HEMATOCRIT 39.8 % (32.4-45.2); HEMOGLOBIN 12.7 GM/dL (10.7-15.3); LYMPH % 34.1 % (8-40); MCH 28.5 pg (25.7-33.7); MEAN PLT VOLUME 8.2 fl (7.5-11.1); MONO % 6.1 % (3.8-10.2); NEUT % 57.6 % (42.8-82.8); PLATELET COUNT 402 K/MM3 (134-434); RBC 4.47 M/mm3 (3.60-5.2); RDW 14.5 % (11.6-15.6); WHITE BLOOD COUNT 5.2 K/mm3 (4.0-10.0)
[2020-06-11 12:57] VITALS: TEMP 98.3
[2020-06-11 13:21] LABS: POTASSIUM 4.3 mmol/L (3.5-5.1)
[2020-06-11 13:23] LABS: CALCIUM 8.9 mg/dL (8.5-10.1)
[2020-06-11 13:24] LABS: ALBUMIN 3.9 g/dl (3.4-5.0); MAGNESIUM 2.1 mg/dL (1.8-2.4)
[2020-06-11 13:26] LABS: CREATININE 0.9 mg/dL (0.55-1.3)
[2020-06-11 13:28] LABS: BILIRUBIN,TOTAL 0.4 mg/dL (0.2-1); TOT PROT 8.2 g/dl (6.4-8.2)
[2020-06-11 13:34] LABS: EPI CELLS >36 /uL (0-25.1); HYALINE CASTS 4 /uL (0-3.1); PH,URINE 5.5 (5.0-8.0); URINE APPEARANCE CLEAR; URINE BACTERIA 1268 /uL (0-1359); URINE BILIRUBIN NEGATIVE (NEGATIVE); URINE COLOR YELLOW; URINE GLUCOSE (UA) NEGATIVE (NEGATIVE); URINE KETONE 1+ (NEGATIVE); URINE LEUK ESTERASE TRACE (NEGATIVE); URINE NITRITE NEGATIVE (NEGATIVE); URINE PROTEIN 1+ (NEGATIVE); URINE RBC 40 /uL (0-23.9); URINE WBC 80 /uL (0-25.8)
[2020-06-11] MEDS ORDERED: KETOROLAC TROMETHAMINE 30 MG/1 ML VIAL IVPUSH ONE (17:24)
[2020-06-11] MEDS ORDERED: KETOROLAC TROMETHAMINE 30 MG/1 ML VIAL ONE (17:48)
[2020-06-11 19:06] VITALS: BP 98/59; PULSE 68
== END 2020-06-11 20:20 | disposition home or self-care (01) ==
LOC: JER 11:01
PROC: 3E033NZ Introduction of Analgesics, Hypnotics, Sedatives into Peripheral Vein, Percutaneous Approach (ICD-10-PCS; principal; 2020-06-11)
PROC: 3E033GC Introduction of Other Therapeutic Substance into Peripheral Vein, Percutaneous Approach (ICD-10-PCS; 2020-06-11)
PROC: 3E0337Z Introduction of Electrolytic and Water Balance Substance into Peripheral Vein, Percutaneous Approach (ICD-10-PCS; 2020-06-11)
DX: L72.0 Epidermal cyst (principal)
CPT/HCPCS: 36415; 74177-TC; 76830-TC; 80053; 81003; 83690; 83735; 84703; 85025; 87086; 99285-25; J0131; Q9967

== ENCOUNTER 2020-06-13 10:52 | Emergency (ER) | payer OTHER ==
[2020-06-13 11:07] VITALS: BP 104/59; PULSE 66; TEMP 98.6; BMI 27.6
[2020-06-13] MEDS ORDERED: ACETAMINOPHEN 1000 MG/100 ML VIAL (NON FORMULARY) IVPB ONE (11:49)
[2020-06-13] MEDS ORDERED: SODIUM CHLORIDE 1,000 ML IV STA (11:49)
[2020-06-13] MEDS ORDERED: ACETAMINOPHEN INJECTION 100 ML IVPB ONE (11:51)
[2020-06-13 11:58] LABS: BASO % 1.1 % (0-2.0); EOS % 0.8 % (0-4.5); HEMATOCRIT 36.2 % (32.4-45.2); HEMOGLOBIN 11.9 GM/dL (10.7-15.3); LYMPH % 29.2 % (8-40); MCH 29.3 pg (25.7-33.7); MCHC 32.9 g/dl (32.0-36.0); MEAN CELL VOLUME 89.1 fl (80-96); MEAN PLT VOLUME 7.7 fl (7.5-11.1); MONO % 23.1 % (3.8-10.2); NEUT % 45.8 % (42.8-82.8); PLATELET COUNT 314 K/MM3 (134-434); RBC 4.07 M/mm3 (3.60-5.2); WHITE BLOOD COUNT 3.2 K/mm3 (4.0-10.0)
[2020-06-13 12:08] LABS: PH,URINE 5.5 (5.0-8.0); URINE APPEARANCE Clear; URINE BILIRUBIN 1+ (NEGATIVE); URINE COLOR Yellow; URINE GLUCOSE (UA) Negative (NEGATIVE); URINE KETONE 2+ (NEGATIVE); URINE LEUK ESTERASE Negative (NEGATIVE); URINE NITRITE Negative (NEGATIVE); URINE PROTEIN 1+ (NEGATIVE)
[2020-06-13] MEDS ORDERED: DICYCLOMINE HCL 20 MG TABLET PO ONE (14:00)
[2020-06-13] MEDS ORDERED: MAG HYDROX/AL HYDROX/SIMETH 30 ML UNIT-DOSE CUP PO ONE (14:00)
[2020-06-13] MEDS ORDERED: DICYCLOMINE HCL 10 MG CAPSULE ONE (14:05)
[2020-06-13] MEDS ORDERED: MAG HYDROX/AL HYDROX/SIMETH 30 ML UNIT-DOSE CUP ONE (14:05)
[2020-06-13 14:57] LABS: ANISOCYTOSIS 0; MACROCYTOSIS 0; PLATELET ESTIMATE NORMAL
[2020-06-13] MEDS ORDERED: KETOROLAC TROMETHAMINE 15 MG/ML VIAL IVPUSH ONE (15:31)
[2020-06-13] MEDS ORDERED: KETOROLAC TROMETHAMINE 15 MG/ML VIAL ONE (15:33)
== END 2020-06-13 16:13 | disposition home or self-care (01) ==
LOC: JER 10:52
PROC: 3E0333Z Introduction of Anti-inflammatory into Peripheral Vein, Percutaneous Approach (ICD-10-PCS; principal; 2020-06-13)
PROC: 3E0333Z Introduction of Anti-inflammatory into Peripheral Vein, Percutaneous Approach (ICD-10-PCS; 2020-06-13)
PROC: 3E0337Z Introduction of Electrolytic and Water Balance Substance into Peripheral Vein, Percutaneous Approach (ICD-10-PCS; 2020-06-13)
DX: M85.451 Solitary bone cyst, right pelvis (principal); R10.2 Pelvic and perineal pain
CPT/HCPCS: 36415; 76830-TC; 81003; 85025; 87086; 87491; 87591; 87661; 99284-25; J0131

== ENCOUNTER 2020-07-10 04:28 | Day surgery (SDC) | payer OTHER ==
[2020-07-09 13:03] VITALS: BMI 32.9
[2020-07-10] MEDS ORDERED: SODIUM CHLORIDE 0.9% P/F 10 ML VIAL IJ ONE (10:50)
[2020-07-10] MEDS ORDERED: DEXAMETHASONE SOD PHOSPHATE 4 MG/1 ML VIAL ONE (10:50)
[2020-07-10] MEDS ORDERED: PROPOFOL 20 ML ONE ×2 (10:50)
[2020-07-10] MEDS ORDERED: ceFAZolin SODIUM 1 GM VIAL ONE (10:50)
[2020-07-10] MEDS ORDERED: MIDAZOLAM HCL 2 MG/2 ML SINGLE DOSE VIAL ONE ×2 (10:51)
[2020-07-10] MEDS ORDERED: fentaNYL CITRATE 250 MCG/5 ML VIAL ONE (10:51)
[2020-07-10] MEDS ORDERED: ROCURONIUM BROMIDE 50 MG/5 ML SYRINGE ONE (10:53)
[2020-07-10] MEDS ORDERED: BUPIVACAINE LIPOSOME/PF (EXPAREL) 266 MG/20 ML VIAL ONE (10:56)
[2020-07-10] MEDS ORDERED: BUPIVACAINE HCL/PF 0.25% (2.5MG/ML) 10 ML VIAL ONE (10:57)
[2020-07-10] MEDS ORDERED: SUCCINYLCHOLINE CHLORIDE 200 MG/10 ML SYRINGE ONE (10:58)
[2020-07-10] MEDS ORDERED: SCOPOLAMINE HYDROBROMIDE 1 PATCH PATCH.TD72 ONE (11:04)
[2020-07-10] MEDS ORDERED: BUPIVACAINE HCL 100 ML ONE (11:10)
[2020-07-10] MEDS ORDERED: TRIAMCINOLONE ACET 40MG/1ML VIAL ONE (11:59)
[2020-07-10] MEDS ORDERED: ceFAZolin SODIUM 1 GM VIAL IVPB ONE (12:00)
[2020-07-10] MEDS ORDERED: GLYCOPYRROLATE 0.2 MG/1 ML VIAL ONE (12:54)
[2020-07-10] MEDS ORDERED: KETOROLAC TROMETHAMINE 30 MG/1 ML VIAL ONE (12:54)
[2020-07-10] MEDS ORDERED: NEOSTIGMINE METHYLSULFATE 0.5 MG/ML - 10 ML MDV ONE (12:55)
[2020-07-10] MEDS ORDERED: ACETAMINOPHEN INJECTION 100 ML IVPB ONE (14:33)
[2020-07-10] MEDS ORDERED: TRIAMCINOLONE ACET 40MG/1ML VIAL IM ONE (14:45)
[2020-07-10] MEDS ORDERED: ONDANSETRON 4 MG/2 ML VIAL IVPUSH PRN (15:06)
[2020-07-10] MEDS ORDERED: oxyCODONE HCL 5 MG TABLET PO PRN ×2 (15:06)
[2020-07-10] MEDS ORDERED: LACTATED RINGERS SOLUTION 1,000 ML IV SCH (15:15)
[2020-07-10] MEDS ORDERED: ONDANSETRON 4 MG/2 ML VIAL IVPUSH ONE (16:30)
[2020-07-10] MEDS ORDERED: ONDANSETRON 4 MG/2 ML VIAL ONE (16:31)
[2020-07-10] MEDS ORDERED: PROMETHAZINE HCL 25 MG/1 ML VIAL IVPB ONE (16:40)
[2020-07-10] MEDS ORDERED: PROMETHAZINE HCL 25 MG/1 ML VIAL ONE (16:44)
[2020-07-10] MEDS ORDERED: PROMETHAZINE HCL 25 MG/1 ML VIAL IVPUSH ONE (16:46)
[2020-07-10] MEDS ORDERED: FAMOTIDINE 20 MG/50 ML IVPB 20 MG/50 ML MG IVPB ONE ×2 (17:57→18:00)
[2020-07-10] MEDS ORDERED: FAMOTIDINE 20 MG PREMIXED IVPB IVPB ONE (18:06)
[2020-07-10 18:48] VITALS: TEMP 97.1
[2020-07-10 20:29] VITALS: BP 116/77; PULSE 84
== END 2020-07-10 20:20 | disposition home or self-care (01) ==
LOC: JASU-SURG 04:28
PROVIDERS: ATTEND Specialist
PROC: 0UT04ZZ Resection of Right Ovary, Percutaneous Endoscopic Approach (ICD-10-PCS; principal; 2020-07-10 12:00)
DX: D27.0 Benign neoplasm of right ovary (principal); N83.511 Torsion of right ovary and ovarian pedicle
CPT/HCPCS: 84703; 94760; J0131

== ENCOUNTER 2024-10-03 08:57 | Observation (INO) | payer OTHER ==
[2024-10-03] MEDS ORDERED: METOCLOPRAMIDE HCL INJECTION 10 MG/2 ML VIAL ONE (09:26)
[2024-10-03] MEDS ORDERED: ACETAMINOPHEN INJECTION 100 ML ONE (09:26)
[2024-10-03] MEDS ORDERED: FAMOTIDINE 20 MG/50 ML IVPB 20 MG/50 ML MG IVPB ONE (09:26)
[2024-10-03] MEDS: METOCLOPRAMIDE HCL INJECTION 10 MG/2 ML VIAL IVPB ONE (09:58)
[2024-10-03] MEDS: LACTATED RINGERS SOLUTION 1000 ML INFUS.BAG IV ONE (09:58)
[2024-10-03] MEDS: ACETAMINOPHEN 1000 MG/100 ML BAG IVPB ONE (09:58)
[2024-10-03] MEDS: FAMOTIDINE 20 MG/50 ML IVPB 20 MG/50 ML MG IVPB ONE (09:59)
[2024-10-03 10:11] LABS: ABSOLUTE IMMATURE GRANULOCYTES 0.08 x10^3/uL (0.0-0.031); BASOPHILS # 0.06 x10^3/uL (0.01-0.08); EOSINOPHIL % 1.8 % (0.7-5.8); EOSINOPHILS # 0.28 x10^3/uL (0.04-0.36); HEMATOCRIT 40.1 % (34.1-44.9); HEMOGLOBIN 12.8 g/dL (11.2-15.7); MCHC 31.9 g/dl (32.2-35.5); MEAN CELL VOLUME 84.2 fl (79.4-94.8); MEAN PLT VOLUME 9.5 fl (9.4-12.3); MONOCYTE # 0.96 x10^3/uL (0.24-0.86); MONOCYTE % 6.2 % (4.7-12.5); PLATELET COUNT 389 x10^3/uL (182-369); RDW 13.1 % (12.1-16.8)
[2024-10-03 10:12] LABS: EPI CELLS 16 /uL (0-25.1); HYALINE CASTS 6 /uL (0-3.1); PH,URINE 5.5 (5.0-8.0); URINE APPEARANCE CLEAR; URINE BACTERIA 1185 /uL (0-1359); URINE BILIRUBIN NEGATIVE (NEGATIVE); URINE COLOR DK YELLOW; URINE GLUCOSE (UA) NEGATIVE (NEGATIVE); URINE KETONE 2+ (NEGATIVE); URINE LEUK ESTERASE NEGATIVE (NEGATIVE); URINE NITRITE NEGATIVE (NEGATIVE); URINE PROTEIN 2+ (NEGATIVE); URINE RBC 126 /uL (0-23.9)
[2024-10-03 10:15] LABS: INR 1.41 (0.83-1.09); PROTHROMBIN TIME (PATIENT) 15.4 SEC (9.7-13.0)
[2024-10-03 10:18] LABS: ACTIVATED PTT 27.8 SECONDS (25.2-36.5)
[2024-10-03 10:34] LABS: URINE WBC 267.4 /uL (0-25.8)
[2024-10-03 10:40] LABS: POTASSIUM 3.6 mmol/L (3.5-5.1)
[2024-10-03 10:42] LABS: BLOOD UREA NITROGEN 12.8 mg/dL (7-18); CALCIUM 8.5 mg/dL (8.5-10.1); MAGNESIUM 1.9 mg/dL (1.8-2.4)
[2024-10-03 10:44] LABS: ALBUMIN 3.5 g/dl (3.4-5.0)
[2024-10-03 10:47] LABS: BILIRUBIN,TOTAL 0.5 mg/dL (0.2-1); TOT PROT 7.4 g/dl (6.4-8.2)
[2024-10-03] MEDS ORDERED: CEFTRIAXONE 1 G/50 ML PREMIX 50 ML IVPB ONE (11:27)
[2024-10-03] MEDS: CEFTRIAXONE 1,000 MG in DEXTROSE 5%-WATER - 50 ML IVPB ONE (11:44)
[2024-10-03 12:10] LABS: POTASSIUM 3.7 mmol/L (3.5-5.1)
[2024-10-03 12:13] LABS: BLOOD UREA NITROGEN 11.8 mg/dL (7-18); MAGNESIUM 1.8 mg/dL (1.8-2.4)
[2024-10-03 12:16] LABS: CREATININE 0.8 mg/dL (0.55-1.3)
[2024-10-03 12:19] LABS: BILIRUBIN,TOTAL 0.4 mg/dL (0.2-1); TOT PROT 6.5 g/dl (6.4-8.2)
[2024-10-03] MEDS ORDERED: MAGNESIUM 1GM/D5W - 1 GM/100 ML IVPB IVPB ONE (12:45)
[2024-10-03] MEDS ORDERED: ACETAMINOPHEN/CAFFEINE/BUTALBITAL 1 TAB ONE (12:45)
[2024-10-03] MEDS: ACETAMINOPHEN/CAFFEINE/BUTALBITAL 1 TAB PO ONE (12:58)
[2024-10-03] MEDS: MAGNESIUM 1GM/D5W - 1 GM/100 ML IVPB IVPB ONE (13:05)
[2024-10-03 14:56] LABS: HEPATITIS B SURFACE AG MATERN NON-REACTIVE (NONREACTIVE)
[2024-10-03 15:27] LABS: HCV DIAGNOSTIC IN-HOUSE W/RFLX NON-REACTIVE (NONREACTIVE)
[2024-10-03 17:40] VITALS: BMI 36.6
[2024-10-03] MEDS: PANTOPRAZOLE 40 MG TABLET PO SCH (18:04)
[2024-10-03] MEDS: D5-1/2NS+20 MEQ KCL - 20 MEQ/1,000 ML INFUS.BAG IV SCH (18:47)
[2024-10-04 09:29] LABS: INR 1.23 (0.83-1.09); PROTHROMBIN TIME (PATIENT) 13.5 SEC (9.7-13.0)
[2024-10-04 09:32] LABS: ABSOLUTE IMMATURE GRANULOCYTES 0.01 x10^3/uL (0.0-0.031); BASOPHILS # 0.03 x10^3/uL (0.01-0.08); EOSINOPHIL % 1.9 % (0.7-5.8); EOSINOPHILS # 0.12 x10^3/uL (0.04-0.36); HEMATOCRIT 34.2 % (34.1-44.9); HEMOGLOBIN 11.1 g/dL (11.2-15.7); MCHC 32.5 g/dl (32.2-35.5); MEAN CELL VOLUME 84.9 fl (79.4-94.8); MONOCYTE # 0.49 x10^3/uL (0.24-0.86); MONOCYTE % 7.9 % (4.7-12.5); RDW 13.2 % (12.1-16.8)
[2024-10-04 09:52] LABS: POTASSIUM 3.6 mmol/L (3.5-5.1)
[2024-10-04 10:56] LABS: BLOOD UREA NITROGEN 8.9 mg/dL (7-18); CALCIUM 7.9 mg/dL (8.5-10.1)
[2024-10-04 10:57] LABS: ALBUMIN 2.9 g/dl (3.4-5.0)
[2024-10-04 10:59] LABS: CREATININE 0.7 mg/dL (0.55-1.3)
[2024-10-04 11:00] LABS: BILIRUBIN,TOTAL 0.3 mg/dL (0.2-1)
[2024-10-04 11:01] LABS: TOT PROT 6.3 g/dl (6.4-8.2)
[2024-10-04] MEDS: POTASSIUM CHLORIDE TABS 20 MEQ TABLET.ER (FP) PO ONE (12:22)
[2024-10-04] MEDS: MAG HYDROX/AL HYDROX/SIMETH 30 ML UNIT-DOSE CUP PO PRN (12:22)
[2024-10-04 15:42] LABS: MEAN PLT VOLUME 9.7 fl (9.4-12.3); PLATELET COUNT 364 x10^3/uL (182-369)
[2024-10-04 18:42] VITALS: RESP 18
[2024-10-05 09:02] LABS: MCHC 31.6 g/dl (32.2-35.5); MEAN CELL VOLUME 84.8 fl (79.4-94.8); MEAN PLT VOLUME 9.5 fl (9.4-12.3); PLATELET COUNT 439 x10^3/uL (182-369); RDW 13.4 % (12.1-16.8)
[2024-10-05 09:13] LABS: INR 1.06 (0.83-1.09); PROTHROMBIN TIME (PATIENT) 11.6 SEC (9.7-13.0)
[2024-10-05 09:26] LABS: POTASSIUM 4.3 mmol/L (3.5-5.1)
[2024-10-05 09:30] LABS: CALCIUM 8.6 mg/dL (8.5-10.1)
[2024-10-05 09:31] LABS: ALBUMIN 3.1 g/dl (3.4-5.0); BLOOD UREA NITROGEN 6.9 mg/dL (7-18)
[2024-10-05 09:34] LABS: CREATININE 0.7 mg/dL (0.55-1.3)
[2024-10-05 09:36] LABS: BILIRUBIN,TOTAL 0.2 mg/dL (0.2-1); TOT PROT 7.1 g/dl (6.4-8.2)
[2024-10-05 09:39] VITALS: BP 98/57; PULSE 74; TEMP 97.7
== END 2024-10-05 14:31 | disposition home or self-care (01) ==
LOC: JER 08:57 → JERBED 14:11 → J5S 17:04
PROVIDERS: ADMIT Family Medicine; ATTEND Family Medicine
PROC: 3E03329 Introduction of Other Anti-infective into Peripheral Vein, Percutaneous Approach (ICD-10-PCS; principal; 2024-10-03)
PROC: 3E033NZ Introduction of Analgesics, Hypnotics, Sedatives into Peripheral Vein, Percutaneous Approach (ICD-10-PCS; 2024-10-03)
PROC: 3E033GC Introduction of Other Therapeutic Substance into Peripheral Vein, Percutaneous Approach (ICD-10-PCS; 2024-10-03)
PROC: 3E0337Z Introduction of Electrolytic and Water Balance Substance into Peripheral Vein, Percutaneous Approach (ICD-10-PCS; 2024-10-03)
DX: N39.0 Urinary tract infection, site not specified (principal); R74.01 Elevation of levels of liver transaminase levels; D27.9 Benign neoplasm of unspecified ovary; R94.5 Abnormal results of liver function studies; L90.0 Lichen sclerosus et atrophicus; D64.9 Anemia, unspecified; Q65.89 Other specified congenital deformities of hip
CPT/HCPCS: 0241U-QW; 36415; 76705-TC; 80053; 80307; 81003; 82150; 82550; 82977; 83690; 83735; 84443; 84703; 85025; 85610; 85730; 86704; 86705; 86707; 86708; 86709; 86803; 86850; 86900; 86901; 87045; 87046; 87086; 87340; 87350; 87517; 87798; 93005; 93010; 96361; 96365; 96367; 96375; 99285-25; G0378; J0131